=== PATIENT | female | born 2000 | race Caucasian/White ===

== ENCOUNTER 2021-06-22 10:08 | Emergency (ER) | payer OTHER, SELFPAY ==
--- NOTE | 2021-06-22 10:14 | ED.URI ---
HPI - URI/Sore Throat General Chief Complaint: Upper Respiratory Infection Stated Complaint: Sore throat Time Seen by Provider: 06/22/21 10:35 Source: patient and RN notes reviewed Mode of arrival: ambulatory Limitations: no limitations History of Present Illness HPI Narrative: 20-year-old female presents with concern for sore throat. Reports symptoms started yesterday. Reports swelling to the right tonsil with exudate. She denies nasal congestion, rhinorrhea, cough, shortness of breath, fever, body aches, chills, sweats. She reports she has not been vaccinated for Covid. Denies any known sick MD elicited complaint: sore throat Related Data Allergies Allergy/AdvReac Type Severity Reaction Status Date / Time amoxicillin Allergy Unknown Verified 06/22/21 10:18 Review of Systems Review of Systems: CONSTITUTIONAL: Denies malaise, chills, sweats, or fever. EYES: Denies visual changes, redness, or discharge. ENT: Denies rhinorrhea, congestion, sinus pain, otalgia. Reports sore throat. CARDIOVASCULAR: Denies chest pain, palpitations, or edema. RESPIRATORY: Denies cough. Denies dyspnea. GASTROINTESTINAL: Denies abdominal pain, nausea, vomiting, diarrhea SKIN: Denies rash or itching. MUSCULOSKELETAL: Denies myalgia. NEUROLOGIC: Denies headache. All systems reviewed & are unremarkable except as noted in HPI and below PMFSH Comments At time of signature, agree with nursing past medical, surgical, social and family history. There is no relevant family history pertinent to the presenting complaint Exam Narrative: GENERAL: Well-appearing, well-nourished, and in no acute distress. HEAD: Normocephalic EYES: PERRLA, conjunctivae clear ENT: Nares clear. Mucous membranes moist. TM pearly riley with dull light reflex bilaterally; no tragal tenderness. Oropharynx erythematous without lesions. Right tonsils enlarged and with white exudate, no drooling, no hoarseness, no trismus, uvula midline. NECK: Supple. No lymphadenopathy CHEST: Clear to auscultation, breath sounds equal. No wheezing, rhonchi, rales, or stridor. No respiratory distress, speaks in full sentences. HEART: Regular rate and rhythm. No murmur heard. SKIN: Warm, dry, no rash. NEURO: Alert and oriented x3. PSYCH: Normal mood and affect Course Course Emergency Course: Patient is aware of diagnosis, understands and agrees to treatment plan. Anticipatory guidance given. Patient agrees to follow-up as directed and is aware of reasons to seek care at the emergency department. Portions of this record may have been created with voice recognition software Level of Care: Express Care Visit Vital Signs Vital signs: Reviewed. MDM - URI/Sore Throat MDM Narrative Medical decision making narrative: Differential diagnosis considered: Connolly virus, strep pharyngitis, allergic rhinitis, upper respiratory tract infection, sinusitis, rhinosinusitis, nasopharyngitis. viral pharyngitis, otitis media, otitis externa, pneumonia, bronchitis, viral cough syndrome, viral syndrome, and influenza. Exam findings show no acute concerns or changes; patient is non-toxic appearing and is in no distress. Patient is appropriate for outpatient treatment and follow-up. Lab Data Attestation: I reviewed the patient's lab results. Critical Care Time Critical Care Time Critical Care Time: No Discharge Plan Discharge Clinical Impression: Acute tonsillitis Qualifiers: Pharyngitis/tonsillitis etiology: unspecified etiology Qualified Code(s): J03.90 - Acute tonsillitis, unspecified Patient Disposition: Home, Self-Care Condition: Stable Instructions: Antibiotic Form, Tonsillitis (ED) Additional Instructions: -Take the medication as prescribed. Throw away the toothbrush after 24hours of antibiotic. -Eat and drink things that are easy to swallow, like tea or soup, or popsicles to suck on. -Oral rinses such as: Salt water gargles and/or may use topical anesthetic (eg. Chloraseptic spray) or lozenges to re
[2021-06-22 10:17] VITALS: BP 125/73; PULSE 106; RESP 16; TEMP 37.2; O2SAT 100
[2021-06-22 10:20] VITALS: BP 125/73; PULSE 106; RESP 16; TEMP 37.2; O2SAT 100
== END 2021-06-22 10:52 | disposition home or self-care (01) ==
PROVIDERS: Emergency Provider Nurse Practitioner
DX: J03.90 Acute tonsillitis, unspecified (principal)
CPT/HCPCS: 87081; 87880; 99213; G0463

== ENCOUNTER 2021-06-30 10:33 | Emergency (ER) | payer OTHER, SELFPAY ==
--- NOTE | 2021-06-30 11:08 | ED.URI ---
HPI - URI/Sore Throat General Chief Complaint: Upper Respiratory Infection Stated Complaint: Sore throat Time Seen by Provider: 06/30/21 11:10 Source: patient Mode of arrival: ambulatory Limitations: no limitations History of Present Illness HPI Narrative: 20-year-old female presenting complaint of sore throat. Onset 06/22/2021, she was treated with azithromycin which she endorses did not help, she was then given for her steroid. She states she completed the steroid yesterday but woke this morning with pain and swelling again. Denies sinus pressure or congestion, cough, nausea, fever or chills. Allergy to PCN. MD elicited complaint: sore throat Related Data Allergies Allergy/AdvReac Type Severity Reaction Status Date / Time amoxicillin Allergy Unknown Verified 06/22/21 10:18 Review of Systems Review of Systems: CONSTITUTIONAL: Endorses malaise, chills, sweats, fever. EYES: Denies visual changes, redness, or discharge. ENT: Endorses sore throat denies rhinorrhea, congestion, sinus pain, otalgia CARDIOVASCULAR: Denies chest pain, palpitations, or edema. RESPIRATORY: Denies cough, post nasal drainage, dyspnea. GASTROINTESTINAL: Denies abdominal pain, nausea, vomiting, diarrhea SKIN: Denies rash or itching. MUSCULOSKELETAL: Denies myalgia. NEUROLOGIC: Denies headache. PMFSH Comments At time of signature, I have reviewed and agree with nursing past medical, surgical, social and family history unless otherwise noted. Please see nursing chart for further information. There is no relevant family history pertinent to the presenting complaint Exam Narrative: GENERAL: Ill-appearing, nontoxic no acute distress. HEAD: Normocephalic EYES: PERRLA, conjunctivae clear ENT: Mucous membranes moist. TM pearly riley with dull light reflex bilaterally; no tragal tenderness. Oropharynx erythematous and edematous, without lesions. Tonsils enlarged touching uvula, and without exudate, no drooling, no hoarseness, no trismus, uvula midline. NECK: Supple. Anterior cervical lymphadenopathy CHEST: Clear to auscultation, breath sounds equal. No wheezing, rhonchi, rales, or stridor. No respiratory distress, speaks in full sentences. HEART: Regular rate and rhythm. No murmur heard. SKIN: Warm, dry, no rash. NEURO: Alert and oriented x3. PSYCH: Normal mood and affect Course Course Emergency Course: Patient is aware of diagnosis, understands and agrees to treatment plan. Anticipatory guidance given. Patient agrees to follow-up as directed and is aware of reasons to seek care at the emergency department. Portions of this record may have been created with voice recognition software Level of Care: Express Care Visit Vital Signs Vital signs: reviewed MDM - URI/Sore Throat Differential Diagnosis Differential diagnosis: Likely viral infection, pharyngitis and other (Tonsillitis, strep throat, tonsillar abscess) Discharge Plan Discharge Clinical Impression: Acute recurrent tonsillitis Patient Disposition: Home, Self-Care Condition: Stable Instructions: Antibiotic Form, Strep Throat (DC) Additional Instructions: Take medication as directed Gargle with warm salt water twice a day Soft foods, cool liquids Tylenol 1000mg every 8 hours Establish with a primary care provider Return for any worsening symptoms or go to the ER should you develop difficulty swallowing your secretions, severe swelling, trouble breathing/wheezing, fever. Prescriptions: New clindamycin HCl 300 mg capsule 300 mg PO Q8H 10 Days Qty: 30 RF: 0 methylprednisolone [Medrol (Nauj)] 4 mg tablets,dose pack See Rx Instructions .ROUTE .COMPLEX Qty: 21 RF: 0 Follow-up/Referrals: PHYSICIAN,HUMAN DEVELOPMENT PROFESSOR [Primary Care Provider] - Time of Disposition: 11:24
[2021-06-30 11:10] VITALS: BP 130/74; PULSE 92; RESP 16; TEMP 36.9; O2SAT 100
== END 2021-06-30 11:30 | disposition home or self-care (01) ==
PROVIDERS: Emergency Provider Nurse Practitioner Family
DX: J03.90 Acute tonsillitis, unspecified (principal)
CPT/HCPCS: 99213; G0463

== ENCOUNTER 2021-07-23 11:16 | Emergency (ER) | payer OTHER, SELFPAY ==
[2021-07-23 11:23] VITALS: BP 124/83; PULSE 115; RESP 18; TEMP 36.6; O2SAT 99
--- NOTE | 2021-07-23 12:22 | ED.URI ---
HPI - URI/Sore Throat General Chief Complaint: Upper Respiratory Infection Stated Complaint: sore throat Time Seen by Provider: 07/23/21 11:47 Source: patient History of Present Illness HPI Narrative: Patient presents with sore throat been present for the past few days. Patient has similar episode few weeks ago was given steroids and antibiotics and her symptoms improved. Her pain is achy, constant, worse with swallowing. She denies cough or shortness of breath she denies fevers. She denies any abdominal pain nausea or vomiting Related Data Allergies Allergy/AdvReac Type Severity Reaction Status Date / Time amoxicillin Allergy Unknown Verified 06/22/21 10:18 Review of Systems Review of Systems: CONSTITUTIONAL: Denies fever, chills, or sweats. EYES: Denies visual changes, redness, or discharge. ENT: Denies rhinorrhea, congestion, or otalgia. CARDIOVASCULAR: Denies chest pain, palpitations, or edema. RESPIRATORY: Denies cough or dyspnea. GASTROINTESTINAL: Denies abdominal pain, nausea, vomiting, or diarrhea. GENITOURINARY: Denies dysuria or hematuria. SKIN: Denies rash or itching. MUSCULOSKELETAL: Denies back pain, joint pain, or myalgia. NEUROLOGIC: Denies headache, numbness, dizziness, or weakness. PSYCHIATRIC: Denies anxiety or depression. All systems reviewed & are unremarkable except as noted in HPI and below Exam Narrative: GENERAL: Well-appearing, well-nourished, and in no acute distress. HEAD: Normocephalic, atraumatic. EYES: PERRLA and EOMI. ENT: Nares clear, no rhinorrhea or epistaxis. Mucous membranes moist. Oropharynx with erythema and edema of the tonsils. NECK: Supple. No masses. No JVD lymphadenopathy on the left anterior cervical chain CHEST: Clear to auscultation. No respiratory distress. No wheezes rales or rhonchi HEART: Regular rate and rhythm. No murmur heard. Normal peripheral pulses. ABDOMEN: Soft, nontender, nondistended, normal active bowel sounds. EXTREMITIES: Normal range of motion. No edema. SKIN: Warm, dry, no rash. NEURO: No focal deficits. Alert and oriented x3. PSYCH: Normal mood and affect. Course Reevaluation(s) Reevaluation #1: Patient resting comfortably, results and plan reviewed with patient. Patient is comfortable outpatient plan. Date: 07/23/21 Time: 13:44 Vital Signs Vital signs: Vital Signs Temperature 36.6 C 07/23/21 11:23 Pulse Rate 115 H 07/23/21 11:23 Respiratory Rate 18 07/23/21 11:23 Blood Pressure 124/83 07/23/21 11:23 Pulse Oximetry 99 07/23/21 11:23 Temperature 36.9 C 07/23/21 14:32 Pulse Rate 103 H 07/23/21 14:32 Respiratory Rate 16 07/23/21 14:32 Blood Pressure 111/68 07/23/21 14:32 Pulse Oximetry 99 07/23/21 14:32 MDM - URI/Sore Throat MDM Narrative Medical decision making narrative: H&P as above, vs with mild tachycardia, pt looks clinically well, exam *erythema edema in the posterior pharynx, labs with rapid strep and flu negative culture pending Monospot is negative, additional labs/img considered, symptomatic relief available as needed, on reevaluation pt continues to looks clinically well. Suspect viral pharyngitis however given patient's and her lymphadenopathy and lack of cough symptoms may represent strep pharyngitis, dns CONSUMER SERVICES CONSULTANT, severe sepsis, airway compromise. plan to tx/monitor as op w/ pcm f/u findings/plan discussed with pt, pt agree/comfortable with plan, return precautions given. Patient was given a prescription for antibiotics instructed to follow-up with culture results and initiate antibiotics if culture is positive otherwise she should continue supportive therapies Lab Data Labs: Lab Results 07/23/21 Range/Units 12:53 Monoscreen Negative (Negative) Influenza A Screen Negative Reference Range: Negative Influenza B Screen Negative Reference Range: Negative Strep Screen
[2021-07-23] MEDS: KETOROLAC 30 MG/ML VIAL (*BKC) IM (12:25)
[2021-07-23 13:29] LABS: Monoscreen Negative (Negative); Positive Monotest Control Positive (Positive)
[2021-07-23 13:30] LABS: Negative Monotest Control Negative (Negative)
[2021-07-23] MEDS: predniSONE 20 MG TABLET 40 MG PO (13:50)
[2021-07-23] MEDS: ACETAMINOPHEN 500 MG TABLET 1000 MG PO (13:50)
[2021-07-23 14:32] VITALS: BP 111/68; PULSE 103; RESP 16; TEMP 36.9; O2SAT 99
== END 2021-07-23 14:33 | disposition home or self-care (01) ==
PROVIDERS: Emergency Provider Emergency Medicine
DX: J02.9 Acute pharyngitis, unspecified (principal)
CPT/HCPCS: 36415; 86308; 87081; 87804; 87880; 96372; 99283; A9270; J1885; J7512

== ENCOUNTER 2021-07-25 12:33 | Emergency (ER) | payer OTHER, SELFPAY ==
--- NOTE | ~2021-07-25 | CT_ITS ---
EXAMINATION: CT soft tissue neck w con EXAM DATE: 07/25/2021 17:03 INDICATION: Pain, swelling. TECHNIQUE: Spiral CT of the neck was performed following intravenous injection of 75 mL Omnipaque 350 . Axial, coronal and sagittal images were reviewed. The dose-length product (DLP) for this examinat ion was 458.82 mGy-cm. The exposure was tailored according to patient size (auto mA exposure control ), and iterative reconstruction (ASIR) was used as additional dose reduction technique. There is no prior study for comparison. FINDINGS: There is low-density region involving deep aspect of enlarged left tonsil measuring up to a bout 2 cm, consistent with peritonsillar abscess. No retropharyngeal abscess. Epiglottis normal in th ickness. The thyroid gland is unremarkable. The submandibular and parotid glands are symmetric. T here is no cervical lymphadenopathy. There are no masses identified. The superior mediastinum is unremarkable. The airway is unremarkable. Parapharyngeal and pre-glottic fat planes are preserved . The opacified vasculature is patent. The orbits are unremarkable. Visualized sinuses and mast oid air cells are well aerated. There is cervical spondylosis. IMPRESSION: Left tonsillar/peritonsillar abscess. Reviewed, dictated and finalized at location G. [facility] MANAGER
[2021-07-25 12:36] VITALS: BP 140/86; PULSE 127; RESP 18; TEMP 36.7; O2SAT 100
--- NOTE | 2021-07-25 15:10 | ED.GENADULT ---
HPI - General Adult General Chief complaint: Upper Respiratory Infection Stated complaint: ?PERITONSILLAR ABSCESS Time Seen by Provider: 07/25/21 15:09 Source: patient Mode of arrival: ambulatory Limitations: no limitations History of Present Illness HPI narrative: Patient is a 20-year-old female complaining of a sore throat, difficult swallowing due to pain x1 month, states that she called her primary care physician, did a telemedicine, looked at her throat and was told to go to the emergency room because it could be a peritonsillar abscess. Patient denies any cough, nasal congestion, fever or chills. Related Data Allergies Allergy/AdvReac Type Severity Reaction Status Date / Time amoxicillin Allergy Unknown Verified 06/22/21 10:18 Review of Systems Review of Systems: All systems reviewed & are unremarkable except as noted in HPI and below Constitutional: Constitutional: Denies body ache(s), Denies excessive sweating, Denies fatigue, Denies headache(s), Denies lethargy, Denies malaise, Denies weakness and Denies weight loss Eyes: Eyes: Denies blurry vision, Denies change in vision and Denies loss of vision ENT: Denies dizziness, Denies ear discharge, Denies headache(s), Denies lip swelling, Denies epistaxis, Denies nasal congestion, Denies neck pain and Denies tongue swelling Cardiovascular: Cardiovascular: Denies chest pain, Denies chest pain at rest, Denies chest pain with activity, Denies diaphoresis, Denies rapid heart rate, Denies edema, Denies irregular heart rhythm, Denies lightheadedness, Denies palpitations, Denies dyspnea and Denies dyspnea on exertion Respiratory: Respiratory: Denies chest congestion, Denies cough, Denies hemoptysis, Denies dyspnea and Denies dyspnea on exertion Gastrointestinal: Gastrointestinal: Denies abdominal pain, Denies melena, Denies hematochezia, Denies diarrhea, Denies nausea, Denies vomiting and Denies hematemesis Musculoskeletal: Musculoskeletal: Denies abnormal gait, Denies deformity, Denies joint swelling, Denies limited range of motion, Denies neck pain and Denies numbness Neurologic: Denies Abnormal speech present, Denies abnormal gait, Denies confusion, Denies dizziness, Denies headache(s), Denies focal weakness, Denies loss of vision, Denies numbness, Denies Other visual disturbances, Denies Sensory deficit (Neuro) and Denies weakness Psychiatric: Psychiatric: Denies confusion, Denies depression, Denies auditory hallucinations, Denies homicidal ideation and Denies suicidal ideation Endocrine: Endocrine: Denies cold intolerance, Denies excessive sweating, Denies fatigue, Denies heat intolerance and Denies palpitations Hematologic/Lymphatic: Hematologic/Lymphatic: Denies easy bleeding and Denies easy bruising Allergic/Immunologic: Allergic/Immunologic: Denies lip swelling, Denies throat swelling and Denies tongue swelling PMFSH Comments Past medical history: None Family history: None Social history: Non-smoker no EtOH or drug use Exam Const: General: cooperative, healthy appearing, comfortable, no acute distress, well developed, alert and awake; No confusion Orientation/consciousness: oriented to person, oriented to place, oriented to time, patient oriented x3 and No confusion Limitations: no limitations HENMT: Head: normal to inspection, normocephalic and atraumatic Ears: hearing grossly normal bilaterally, TM normal on the right and TM normal on the left General nose exam: Normal external nose present, Normal nares present and No nasal discharge present Face and sinus: normal facial exam Mouth: Yes Normal oral and palatal mucosa present, Yes lip normal and Yes tongue normal Throat: posterior oropharynx abnormal, tonsils normal and uvula midline Other: Patent airway. Erythematous, swollen, uvula, tonsillar area accompanied by exudates Eyes: General: appearance normal, both eyes and all related structures Pupils: Equal, round and reactive pupils present EOM: EOMs intact bilater
[2021-07-25] MEDS: SODIUM CHLORIDE 0.9% IV 1,000 ML 999 ML IV CONT (15:24)
[2021-07-25 15:40] LABS: Basophils Percent Auto 0.2 % (0.2-1.2); Hematocrit 43.5 % (37.0-47.0); Hemoglobin 14.5 g/dL (12.0-15.0); Immature Granulocyte Absolute 0.04 K/mm3 (0.00-0.031); Immature Granulocyte Percent A 0.4 % (0-0.5); Lymphocytes Absolute Auto 0.94 K/mm3 (0.9-3.2); Lymphocytes Percent Auto 9.5 % (18.3-44.2); Mean Corpuscular HGB Conc 33.3 g/dl (32-36); Mean Corpuscular Hemoglobin 29.8 pg (26-34); Mean Corpuscular Volume 89.5 fl (80-100); Monocytes Absolute Auto 0.1 K/mm3 (0.1-0.6); Monocytes Percent Auto 1.3 % (2.6-8.5); Neutrophils Absolute Auto 8.8 K/mm3 (1.3-6.7); Neutrophils Percent Auto 88.6 % (45.5-73.1); Platelet Count Result 251 k/mm3 (150-375); Red Blood Count 4.86 M/mm3 (4.2-5.4); Red Cell Distribution Width 13.3 % (11.5-14.5); White Blood Count 9.9 K/mm3 (4.5-10.0)
[2021-07-25 16:14] VITALS: O2SAT 100
[2021-07-25 16:15] VITALS: BP 129/79; O2SAT 99
[2021-07-25 16:16] VITALS: O2SAT 100
[2021-07-25 16:47] LABS: Alanine Aminotransferase 27 U/L (4-35); Albumin Level 4.2 g/dL (3.5-5.1); Alkaline Phosphatase 63 U/L (38-126); Anion Gap 6 mmol/L (8-16); Aspartate Amino Transferase 29 U/L (14-36); Bilirubin,Total 0.3 mg/dL (0.2-1.3); Blood Urea Nitrogen 10 mg/dL (7-17); Calcium 8.9 mg/dL (8.4-10.2); Carbon Dioxide 23 mmol/L (22-30); Chloride 110 mmol/L (98-107); Estimated CRCL calculation 123 ml/min; Estimated Glomerular Filt Rate > 60; Glucose 120 mg/dL (65-110); Potassium 3.8 mmol/L (3.4-5.0); Sodium 139 mmol/L (137-145)
[2021-07-25] MEDS: CLINDAMYCIN 600 MG/D5W 50 ML 600 MG/50 ML PIGGYBACK 100 MG IVPB (18:16)
[2021-07-25 18:18] VITALS: BP 122/80; PULSE 97; RESP 16; O2SAT 99
--- NOTE | 2021-07-25 18:37 | PC.NURSE ---
Called X-ray to push imaging results to [facility] at request of KATHLEEN Min.
--- NOTE | 2021-07-25 19:19 | PC.NURSE ---
pt refusing to ride in an ambulance to go to [place]. pt states she will drive there herself. Dr. Min aware of situation. Dilaudid not given to pt per EDP Mechelle since pt will be leaving AMA and driving in a private vehicle.
--- NOTE | 2021-07-25 19:47 | PC.NURSE ---
pt made aware of the risks of leaving AMA/driving by private vehicle and the benefits of being transferred by an ambulance. pt verbalized understanding and is still requesting to drive by private vehicle. pt signed AMA forms. This RN gave pt transfer form, CT scan, and chart to give to Heather. pt's IV was removed w/ catheter intact. Report called to Heather, julio w/ [facility] and is aware pt will be arriving to their ER.
[2021-07-25 19:49] LABS: Monoscreen Negative (Negative); Negative Monotest Control Negative (Negative); Positive Monotest Control Positive (Positive)
[2021-07-25 19:53] VITALS: BP 124/76; PULSE 89; RESP 18; O2SAT 99
[2021-07-25 19:55] LABS: SARS-CoV-2 RNA PCR Negative
== END 2021-07-25 19:57 | disposition left against medical advice (07) ==
PROVIDERS: Emergency Provider Emergency Medicine
DX: J36 Peritonsillar abscess (principal); Z20.822 Contact with and (suspected) exposure to COVID-19
CPT/HCPCS: 36415; 70491; 80053; 81025; 85025; 86308; 87081; 96361; 96365; 96375; 99284; C9803; J1100; J7030; Q9967; U0003; U0005